=== PATIENT | female | born 1935 | race Caucasian/White ===

== ENCOUNTER → 2019-06-27 | Outpatient (CLI) | payer MEDICARE, OTHER | LOC: CLIN-LAKE 08:00 | PROVIDERS: ATTEND Family Medicine | DX: E11.9 Type 2 diabetes mellitus without complications (principal); D64.9 Anemia, unspecified; R53.83 Other fatigue; Z23 Encounter for immunization | CPT/HCPCS: 99214; G0008; 90471; 90662 ==